=== PATIENT | male | born 1950 | race Caucasian/White ===

== ENCOUNTER 2018-06-26 06:42 | Emergency (ER) | payer OTHER ==
[~2018-06-26] VITALS: Ht 182.9 cm; Wt 79.4 kg
[~2018-06-26 06:42] MED LIST: ASPIR 8181 MG PO; CIPRO500 MG PO; CIPROFLOXACIN500 M3 PO; COLACE100 MG PO; NOHOMEMEDICATIONS; PERCOCET 5-3251 EACH PO; ZOFRAN ODT4 MG PO
[2018-06-26 07:23] LABS: ABSOLUTE NEUTROPHILS 11.5 thou/uL (1.4-8.2); BASOPHILS 0.2 % (0.0-2.0); HEMOGLOBIN 13.6 gm/dL (14.0-18.0); LYMPHOCYTES 3.4 % (24.0-44.0); MCH 27.2 pg (26.0-34.0); MCHC 33.9 g/dL (28.0-37.0); MCV 80.2 fL (80.0-100.0); MONOCYTES 5.8 % (1.0-8.0); PLATELET COUNT 178 thou/uL (150-400); POLYS 90.6 % (36.0-66.0); RBC 4.99 mil/uL (4.50-6.00); RDW 12.9 % (10.5-14.5); WBC 12.7 thou/uL (4.0-11.0)
[2018-06-26 07:30] LABS: CALCIUM 8.5 mg/dL (8.5-10.1); CREATININE 0.6 mg/dL (0.7-1.3); POTASSIUM 3.7 mmol/L (3.5-5.1)
[2018-06-26 09:58] LABS: URINE BILIRUBIN NEGATIVE (Negative); URINE BLOOD 1+ (Negative); URINE CLARITY CLEAR; URINE COLOR YELLOW; URINE GLUCOSE-RANDOM* NEGATIVE (Negative); URINE KETONES NEGATIVE (Negative); URINE LEUKOCYTES-REFLEX 1+ (Negative); URINE NITRITE-REFLEX POSITIVE (Negative); URINE PROTEIN (DIPSTICK) NEGATIVE (Negative); URINE SPECIFIC GRAVITY 1.015 (1.005-1.035)
[2018-06-26 10:13] LABS: BACTERIA-REFLEX >30 Many /HPF (None Seen); CASTS None Seen /LPF (None Seen); CRYSTALS None Seen /LPF (None Seen); SQUAMOUS None Seen /LPF (0-3); URINE RBC 0-2 Rare /HPF (0-2); URINE WBC-REFLEX 0-5 Rare /HPF (0-5)
[2018-06-26] MEDS ORDERED: KEFLEX500 M1 PO (10:13)
[2018-06-26 11:45] VITALS: BP 158/83
== END 2018-06-26 11:47 | disposition home or self-care (01) ==
LOC: ER 06:42
PROVIDERS: Emergency Medicine
DX: N30.00 Acute cystitis without hematuria (principal); Z87.442 Personal history of urinary calculi